=== PATIENT | female | born 1970 | race Caucasian/White ===

== ENCOUNTER 2017-07-31 22:22 | Emergency (ER) | payer MEDICAID ==
[~2017-07-31] VITALS: Ht 152.4 cm; Wt 82.0 kg
[~2017-07-31 22:22] MED LIST: LINA5TAB PO; MECL-109 PO; METF10002 PO
[2017-08-01] MEDS ORDERED: MAGNESIUM/ALUMINUM HYDROXIDE/SIMETHICONE 30ML UDC PO STA (02:22)
[2017-08-01] MEDS ORDERED: FAMOTIDINE 20MG/2ML VIAL IV STA (02:22)
[2017-08-01] MEDS ORDERED: ONDANSETRON HCL 4MG/2ML VIAL IV STA (02:22)
[2017-08-01 02:43] LABS: BASOPHILS % 0.9 % (0.0-2.0); EOSINOPHILS % 1.4 % (0.0-5.0); HEMATOCRIT. 38.5 % (36.0-48.0); HEMOGLOBIN. 12.8 g/dL (12.0-16.0); LYMPHOCYTES % 19.5 % (20.0-50.0); MEAN CORPUSCULAR HEMOGLOBIN 26.9 pg (28.0-32.0); MEAN CORPUSCULAR VOLUME 80.6 fL (81.0-99.0); MONOCYTES % 5.7 % (2.0-8.0); NEUTROPHILS % 72.5 % (40.0-76.0); PLATELET 354 x1000/uL (130-400); RED BLOOD CELL COUNT 4.78 mill/uL (4.2-5.4)
[2017-08-01 02:47] LABS: CHLORIDE 96 mEq/L (98-107)
[2017-08-01 03:08] LABS: CARBON DIOXIDE 25 mEq/L (21-32)
[2017-08-01 04:10] LABS: CLARITY URINE CLEAR (CLEAR); COLOR URINE YELLOW (YELLOW); GLUCOSE URINE 3+ (NEGATIVE); KETONES URINE 2+ (NEGATIVE); LEUKOCYTE ESTERASE URINE NEGATIVE (NEGATIVE); NITRITE URINE NEGATIVE (NEGATIVE); OCCULT BLOOD URINE NEGATIVE (NEGATIVE); PROTEIN URINE NEGATIVE (NEGATIVE); SPECIFIC GRAVITY URINE 1.037 (1.005-1.030); UROBILINOGEN URINE 0.2 E.U./dL (0.2-1.0)
[2017-08-01] MEDS ORDERED: INSULIN REGULAR (HUMULIN R) 300UNITS/3ML SUBCUT NR (04:15)
[2017-08-01] MEDS ORDERED: MORPHINE SULFATE 4 MG/ML CPJ (NOT FOR IM USE) IV ONE (05:00)
[2017-08-01 06:35] VITALS: BP 124/67
== END 2017-08-01 07:21 | disposition home or self-care (01) ==
LOC: ER 22:22
DX: R10.13 Epigastric pain (principal); R93.5 Abnormal findings on diagnostic imaging of other abdominal regions, including retroperitoneum; M54.9 Dorsalgia, unspecified; E87.1 Hypo-osmolality and hyponatremia; R03.0 Elevated blood-pressure reading, without diagnosis of hypertension; R73.9 Hyperglycemia, unspecified; R16.0 Hepatomegaly, not elsewhere classified; J98.11 Atelectasis; R59.9 Enlarged lymph nodes, unspecified; Z88.0 Allergy status to penicillin; Z90.49 Acquired absence of other specified parts of digestive tract; Z90.89 Acquired absence of other organs
CPT/HCPCS: 36415; 74176; 80053; 81001; 82962; 83690; 85025; 96372; 96374; 96375; 99285; J1815; J2270; J2405; J3490; J7040; Z7610

== ENCOUNTER 2018-07-22 01:48 | Emergency (ER) | payer MEDICAID ==
[~2018-07-22] VITALS: Ht 152.4 cm; Wt 79.0 kg
[~2018-07-22 01:48] MED LIST changes: -METF10002 PO; +METF10004 PO
[2018-07-22] MEDS ORDERED: KETOROLAC 30MG/ML VIAL IV STA (02:28)
[2018-07-22 02:49] LABS: BASOPHILS % 0.7 % (0.0-2.0); EOSINOPHILS % 2.9 % (0.0-5.0); HEMATOCRIT. 41.8 % (36.0-48.0); HEMOGLOBIN. 14.4 g/dL (12.0-16.0); LYMPHOCYTES % 36.5 % (20.0-50.0); MEAN CORPUSCULAR HEMOGLOBIN 29.2 pg (28.0-32.0); MEAN CORPUSCULAR VOLUME 84.7 fL (81.0-99.0); MEAN PLATELET VOLUME 9.2 fl (7.4-10.4); MONOCYTES % 6.1 % (2.0-8.0); NEUTROPHILS % 53.8 % (40.0-76.0); PLATELET 243 x1000/uL (130-400); RED BLOOD CELL COUNT 4.93 mill/uL (4.2-5.4); RED CELL DISTRIBUTION WIDTH 13.5 % (11.6-14.6)
[2018-07-22 02:54] LABS: CHLORIDE 100 mEq/L (98-107)
[2018-07-22 04:55] VITALS: BP 119/71
== END 2018-07-22 04:56 | disposition home or self-care (01) ==
LOC: ER 01:48
DX: R07.89 Other chest pain (principal); E11.9 Type 2 diabetes mellitus without complications; R03.0 Elevated blood-pressure reading, without diagnosis of hypertension; Z79.84 Long term (current) use of oral hypoglycemic drugs
CPT/HCPCS: 36415; 71045; 80053; 83880; 84484; 85025; 85379; 93005; 96374; 99285; J1885; Z7610